=== PATIENT | female | born 1935 | race Caucasian/White ===

== ENCOUNTER → 2016-08-31 | Outpatient (CLI) | payer MEDICARE, OTHER ==
[~2016-08-31] MED LIST: ALBUTEROL0.63 MG/3 INH; ANTIVERT 25MG T25 MG PO; ASPIRIN CHEWABL81 MG PO; CILOSTAZOL50 MG PO; CLARITIN 10MG T10 MG PO; DOXEPIN HCL25 MG PO; ELIQUIS2.5 MG PO; IPRAT-ALBUT 0.5-3 ML INH; JANUVIA25 MG PO; KENALOG OINT 0.15 GM TOP; LASIX 40 MG TAB40 MG PO; LASIX TAB 20 MG20 MG PO; LEVAQUIN750 MG PO; LEVOTHYROXINE112 MCG PO; LOPRESSOR 50 MG50 MG PO; MEDROL DOSEPAK 24 MG PO; METROCREAM 0.7545 GM TOP; PLAVIX 75 MG TA75 MG PO; PREDNISONE 10 M10 MG PO; PROAIR HFA8.5 GM INH; PROTONIX 40 MG40 M1 PO; SPIRIVA HANDIH18 MCG INH; SYMBICORT 80-41 INHA INH; TRIAMTERENE-HC1 EACH PO; ZYLOPRIM 100 M100 MG PO
== END ==
LOC: HEART 5 14:47
DX: J45.40 Moderate persistent asthma, uncomplicated (principal); F17.210 Nicotine dependence, cigarettes, uncomplicated; R94.2 Abnormal results of pulmonary function studies
CPT/HCPCS: 94060